=== PATIENT | female | born 1995 | race Hispanic/Latino ===

== ENCOUNTER 2020-12-13 16:27 | Emergency (ER) | payer BC ==
--- NOTE | 2020-12-13 16:43 | ERPHSYRPT ---
- History of Present Illness Time Seen by Provider: 12/13/20 16:43 Source: patient Exam Limitations: no limitations Physician History: This is a 25-year-old white female who presents with pain in the left lower rib and left lateral rib. She noticed this 3 days ago. Patient denies falling she denies cough. The pain was radiating around to the left upper quadrant. She had no nausea vomiting or diarrhea. She also has noticed a change in her urine with some mild dysuria. She is concerned of possible gonorrhea or chlamydia. She has had no vaginal discharge. Timing/Duration: day(s) (3) Severity: mild Modifying Factors: Improves With: movement Associated Symptoms: denies symptoms Travel Risk - International Travel Have you traveled outside of the country in past 3 weeks: No - Coronavirus Screening Are you exhibiting any of the following symptoms?: No Close contact with a COVID-19 positive Pt in past 14-21 Days: No - Review of Systems Constitutional: No Symptoms Eyes: No Symptoms Ears, Nose, & Throat: No Symptoms Respiratory: No Symptoms Cardiac: No Symptoms Abdominal/Gastrointestinal: No Symptoms Genitourinary Symptoms: No Symptoms Musculoskeletal: Other (Left rib pain) Skin: No Symptoms Neurological: No Symptoms Psychological: No Symptoms Endocrine: No Symptoms Hematologic/Lymphatic: No Symptoms Immunological/Allergic: No Symptoms All Other Systems: Reviewed and Negative - Past Medical History Pertinent Past Medical History: Yes Neurological History: No Pertinent History ENT History: No Pertinent History Cardiac History: No Pertinent History Respiratory History: No Pertinent History Endocrine Medical History: No Pertinent History Musculoskeletal History: No Pertinent History GI Medical History: No Pertinent History History: No Pertinent History Psycho-Social History: No Pertinent History Female Reproductive Disorders: No Pertinent History - Past Surgical History Past Surgical History: Yes Neuro Surgical History: No Pertinent History Cardiac: No Pertinent History Respiratory: No Pertinent History Gastrointestinal: No Pertinent History Genitourinary: No Pertinent History Musculoskeletal: No Pertinent History Female Surgical History: No Pertinent History - Nursing Vital Signs Nursing Vital Signs: Initial Vital Signs Temperature 97.7 F 12/13/20 16:36 Pulse Rate 70 12/13/20 16:36 Respiratory Rate 16 12/13/20 16:36 Blood Pressure 126/74 12/13/20 16:36 O2 Sat by Pulse Oximetry 98 12/13/20 16:36 Pain Scale Pain Intensity 6 - Physical Exam General Appearance: no apparent distress, alert, anxiety Eye Exam: PERRL/EOMI, eyes nml inspection Ears, Nose, Throat Exam: normal ENT inspection, moist mucous membranes Neck Exam: normal inspection, non-tender, supple, full range of motion Respiratory Exam: normal breath sounds, lungs clear, other (Tender left rib margin), No chest tenderness, No respiratory distress Cardiovascular Exam: regular rate/rhythm, normal heart sounds, normal peripheral pulses Gastrointestinal/Abdomen Exam: soft, normal bowel sounds, No tenderness Pelvic Exam: not done Rectal Exam: not done Back Exam: normal inspection, normal range of motion, No CVA tenderness, No vertebral tenderness Extremity Exam: normal inspection, normal range of motion, pelvis stable Neurologic Exam: alert, oriented x 3, cooperative, 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, normal mood/affect, nml cerebellar function, nml station & gait, sensation nml Skin Exam: normal color, warm, dry Lymphatic Exam: No adenopathy SpO2 Interpretation: normal O2 Delivery: Room Air - Course Nursing assessment & vital signs reviewed: Yes Ordered Tests: Active Orders 24 hr Category Date Time Status RIBS UNILATERAL Stat Exams 12/13/20 17:21 Ordered CULTURE,URINE Stat Lab 12/13/20 17:28 Received HCG,QUALITATIVE URINE Stat Lab 12/13/20 17:28 Completed UA W/RFX UR CULTURE Stat Lab 12/13/20 17:28 Completed Lab/Rad Data: Laboratory Results 12/13/20 12/13/20 Range/Units 17:28 17:28 Urine Color YELLOW (YELLOW) Urine Appearance CLOUDY (CLEAR) Urine pH 6.0 (5-6) Ur Specific [place] 1.015 (1.005-1.025) Urine Protein 30 (Negative) Urine Ketones NEGATIVE (NEGATIVE) Urine Blood SMALL (0-5) N[place]/ul Urine Nitrite POSITIVE (NEGATIVE) Urine Bilirubin NEGATIVE (NEGATIVE) Urine Urobilinogen 2 (0-1) mg/dL Ur Leukocyte Esterase SMALL (NEGATIVE) Urine WBC (Auto) 26-50 (0-5) /HPF Urine RBC (Auto) 6-10 (0-2) /HPF U Epithel Cells (Auto) RARE (FEW) /HPF Urine Bacteria (Auto) MANY (NEGATIVE) /HPF Urine Mucus (Auto) SLIGHT (NEGATIVE) /HPF Urine Culture Reflexed YES (NO) Urine Glucose NEGATIVE (NEGATIVE) mg/dL Urine HCG, Qual NEGATIVE (Negative) - Progress Progress Note: 12/13/20 18:08 Patient wants to leave AMA. We do not have the gonorrhea and chlamydia test results back. The chest x-ray was not yet performed. We did tell the patient she has a urinary tract infection I will call in a prescription of Cipro to treat this infection. We will have her sign AMA form 12/13/20 18:09 Counseled pt/family regarding: lab results, diagnosis, need for follow-up - Departure Departure Disposition: AMA Clinical Impression: Urinary tract infection Condition: Stable Critical Care Time: No Referrals: DOCTOR,NO FAMILY [Primary Care Provider] - Additional Instructions: Drink plenty of fluids. Take Tylenol and ibuprofen for pain control. Follow-up with your primary care doctor for further management. Take medication as prescribed.
[2020-12-13 16:58] VITALS: O2SAT 98
[2020-12-13 17:39] LABS: Appearance CLOUDY (CLEAR); Bacteria MANY /HPF (NEGATIVE); Bilirubin NEGATIVE (NEGATIVE); Blood SMALL Ery/ul (0-5); Epithelial Cells RARE /HPF (FEW); Glucose NEGATIVE (NEGATIVE); Ketones NEGATIVE (NEGATIVE); Leukocyte Esterase SMALL (NEGATIVE); Mucus SLIGHT /HPF (NEGATIVE); Nitrite POSITIVE (NEGATIVE); Protein,Urine Dip 30 (Negative); Specific Gravity 1.015 (1.005-1.025); Urobilinogen 2 mg/dL (0-1); WBC 26-50 /HPF (0-5)
[2020-12-13 18:15] VITALS: BP 109/74; PULSE 85
[2020-12-13 19:14] LABS: CHLAMYDIA DNA NOT DETECTED (NEGATIVE); GC DNA Probe NOT DETECTED (NEGATIVE)
== END 2020-12-13 18:15 | disposition left against medical advice (07) ==
LOC: ED 16:27
DX: N39.0 Urinary tract infection, site not specified (principal); R07.89 Other chest pain; R07.81 Pleurodynia
CPT/HCPCS: 81001; 84703; 87077; 87086; 87186; 87491; 87591; 99283